=== PATIENT | female | born 1970 | race African-American/Black ===

== ENCOUNTER 2018-01-30 11:36 | Emergency (ER) | payer BC, SELFPAY ==
[~2018-01-30] VITALS: Ht 167.6 cm; Wt 72.6 kg
[2018-01-30 11:33] VITALS: BP 134/88
[~2018-01-30 11:36] MED LIST: AZITHROMYCIN250 MG ORAL; IBUPROFEN600 MG ORAL; LISINOPRIL-HCT1 EACH ORAL
[2018-01-30] MEDS ORDERED: Sodium Chloride 500ML 500 ML IV ONE (12:07)
--- NOTE | 2018-01-30 12:13 | Emergency Room Report ---
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 was on Keppra however few months ago stopped taking the medicine secondary to side effects Patient was at lunch with friends when she began having initially with sounds to be a partial seizure where she started to turn her head to the right side became stiff And then turn into a tonic-clonic seizure activity At this time patient is awake and alert denies any chest pain denies any back or flank pain She is on 2 antihypertensive medications Otherwise denies any focal weakness Allergies: Coded Allergies: No Known Allergies (Unverified , 05/28/14) Patient History Past Medical History: see triage record Pertinent Family History: none Now: No Reviewed Nursing Documentation: PMH: Agreed; PSxH: Agreed Nursing Documentation-PMH Past Medical History: No History, Except For Hx Hypertension: Yes Review of Systems All Other Systems: negative except mentioned in HPI Physical Exam Vital Signs Date Time Temp Pulse Resp B/P (MAP) Pulse Ox O2 Delivery O2 Flow Rate FiO2 01/30/18 11:18 98.4 120 16 160/102 99 Room Air 98.4 Sp02 EP Interpretation: reviewed, normal General Appearance: well appearing, no apparent distress Head: normocephalic, other - Evidence of surgical scar involving the left temporal area Eyes: bilateral eye PERRL, bilateral eye EOMI ENT: hearing grossly normal, normal pharynx, TMs + canals normal, uvula midline Neck: full range of motion, supple, no meningismus, no bony tend Respiratory: lungs clear, normal breath sounds, no rhonchi, no respiratory distress, no retraction, no accessory muscle use Cardiovascular #1: normal peripheral pulses, regular rate, rhythm, no edema, no gallop, no JVD, no murmur Gastrointestinal: normal bowel sounds, non tender, soft, no mass, no organomegaly, non-distended, no guarding, no hernia, no pulsatile mass, no rebound Genitourinary: no CVA tenderness Musculoskeletal: normal inspection Neurologic: oriented x3, responsive, 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 operator III-XII nml as tested, motor strength/ tone normal, sensory intact Psychiatric: mood/affect normal Skin: normal color, no rash, warm/dry, palpation normal Lymphatic: normal inspection, no adenopathy Medical Decision Making Diagnostic Impression: Primary Impression: Seizure ER Course Multiple differentials including but not limited to neurological, neurosurgical , infectious pathology entertained Patient CT head at this time is negative Baseline blood work are appropriate Initial dose of Keppra is provided I did make contact with the patient's neurosurgeon at [facility] He does recall the patient while He recommended the patient start on a lower dose of Keppra And will make follow-up for this upcoming week patient reports significant reaction to Keppra and requesting other medication and was provided with Dilantin until she is able to see her specialist Labs Test 01/30/18 12:18 White Blood Count 9.5 K/UL (4.8-10.8) Red Blood Count 4.86 M/UL (4.20-5.40) Hemoglobin 13.2 G/DL (12.0-16.0) Hematocrit 40.8 % (37.0-47.0) Mean Corpuscular Volume 84 FL (80-99) Mean Corpuscular Hemoglobin 27.1 PG (27.0-31.0) Mean Corpuscular Hemoglobin Concent 32.2 G/DL (32.0-36.0) Red Cell Distribution Width 14.4 % (11.6-14.8) Platelet Count 283 K/UL (150-450) Mean Platelet Volume 7.3 FL (6.5-10.1) Neutrophils (%) (Auto) 75.7 % (45.0-75.0) Lymphocytes (%) (Auto) 16.4 % (20.0-45.0) Monocytes (%) (Auto) 6.6 % (1.0-10.0) Eosinophils (%) (Auto) 0.7 % (0.0-3.0) Basophils (%) (Auto) 0.7 % (0.0-2.0) Sodium Level 138 MMOL/L (136-145) Potassium Level 3.9 MMOL/L (3.5-5.1) Chloride Level 102 MMOL/L (98-107) Carbon Dioxide Level 21 MMOL/L (21-32) Anion Gap 15 mmol/L (5-15) Blood Urea Nitrogen 9 mg/dL (7-18) Creatinine 0.9 MG/DL (0.55-1.30) Estimat Glomerular Filtration Rate > 60 mL/min (>60) Glucose Level 126 MG/DL (74-106) Calcium Level 8.4 MG/DL (8.5-10.1) Total Bilirubin 0.4 MG/DL (0.2-1.0) Aspartate Amino Transf (AST/SGOT) 15 U/L (15-37) Alanine Aminotransferase (ALT/SGPT) 12 U/L (12-78) Alkaline Phosphatase 69 U/L (46-116) Total Creatine Kinase 9 U/L (26-308) Creatine Kinase MB 0.5 NG/ML (0.0-3.6) Creatine Kinase MB Relative Index 5.5 Total Protein 7.4 G/DL (6.4-8.2) Albumin 3.5 G/DL (3.4-5.0) Globulin 3.9 g/dL Albumin/Globulin Ratio 0.9 (1.0-2.7) EKG Diagnostic Results Rate: normal Rhythm: NSR ST Segments: no acute changes Rhythm Strip Diag. Results EP Interpretation: yes Rate: 66 Rhythm: NSR, no PVC's, no ectopy Chest X-Ray Diagnostic Results Chest X-Ray Diagnostic Results : Chest X-Ray Ordered: Yes # of Views/Limited/Complete: 1 View Indication: Chest Pain EP Interpretation: Yes Interpretation: no consolidation, no effusion, no pneumothorax Impression: No acute disease Electronically Signed by: Nabil Leung DO CT/MRI/US Diagnostic Results CT/MRI/US Diagnostic Results : Impression CT head no acute disease Last Vital Signs Date Time Temp Pulse Resp B/P (MAP) Pulse Ox O2 Delivery O2 Flow Rate FiO2 01/30/18 11:33 98.4 107 16 134/88 99 Room Air 98.4 Status: improved Disposition: HOME, SELF-CARE Condition: Improved Scripts Phenytoin Sodium Extended* (DILANTIN*) 100 Mg Capsule 100 MG ORAL BID, #10 CAP 0 Refills Prov: Nabil Leung DO 01/30/18 Referrals: NOT CHOSEN IPA/MD,REFERRING (PCP) Additional Instructions: Patient is provided with the discharge instructions notified to follow up with your neurosurgeon in the next 2-3 days otherwise return to the er with any worsening symptoms. Please note that this report is being documented using DRAGON technology. This can lead to erroneous entry secondary to incorrect interpretation by the dictating instrument. Nabil Leung DO Jan 30, 2018 12:13
[2018-01-30] MEDS ORDERED: levETIRAcetam 500mg/NS100ml 100 ML IVPB ONE (12:15)
[2018-01-30 12:35] LABS: BASOPHILS % (AUTO) 0.7 % (0.0-2.0); EOSINOPHILS % (AUTO) 0.7 % (0.0-3.0); HEMATOCRIT 40.8 % (37.0-47.0); HEMOGLOBIN 13.2 G/DL (12.0-16.0); LYMPHOCYTES % (AUTO) 16.4 % (20.0-45.0); MEAN CORPUSCULAR VOLUME 84 FL (80-99); MONOCYTES % (AUTO) 6.6 % (1.0-10.0); NEUTROPHILS % (AUTO) 75.7 % (45.0-75.0); PLATELET COUNT 283 K/UL (150-450); RED BLOOD COUNT 4.86 M/UL (4.20-5.40); RED CELL DISTRIBUTION WIDTH 14.4 % (11.6-14.8); WHITE BLOOD COUNT 9.5 K/UL (4.8-10.8)
[2018-01-30 12:41] LABS: ANION GAP 15 mmol/L (5-15); BLOOD UREA NITROGEN 9 mg/dL (7-18); CALCIUM 8.4 MG/DL (8.5-10.1); CARBON DIOXIDE 21 MMOL/L (21-32); CHLORIDE 102 MMOL/L (98-107); CREATININE 0.9 MG/DL (0.55-1.30); POTASSIUM 3.9 MMOL/L (3.5-5.1); SODIUM 138 MMOL/L (136-145)
--- NOTE | 2018-01-30 12:41 | Diagnostic Imaging Report ---
EXAM: XR Chest, 1 View CLINICAL HISTORY: CP TECHNIQUE: Frontal view of the chest. COMPARISON: No relevant prior studies available. FINDINGS: Lungs: No consolidation. Pleural space: Unremarkable. No pneumothorax. Heart: Borderline cardiomegaly. Mediastinum: Unremarkable. Bones/joints: No acute fracture. Vasculature: Prominent aortic knob. IMPRESSION: No acute findings.
--- NOTE | 2018-01-30 12:43 | Diagnostic Imaging Report ---
EXAM: CT Head Without Intravenous Contrast CLINICAL HISTORY: SZ TECHNIQUE: Axial computed tomography images of the head/brain without intravenous contrast. CTDI is 0.15 + 70.38 mGy and DLP is 1315 mGy-cm. One or more of the following dose reduction techniques were used: automated exposure control, adjustment of the mA and/or kV according to patient size, use of iterative reconstruction technique. COMPARISON: No relevant prior studies available. FINDINGS: Brain: No intracranial hemorrhage. Gliosis and encephalomalacia in the left temporal lobe. Ventricles: No ventriculomegaly. Bones/joints: Surgical changes in left calvarium. Soft tissues: Unremarkable. Sinuses: No acute sinusitis. Mastoid air cells: No mastoid effusion. IMPRESSION: No acute findings.
[2018-01-30 12:55] LABS: ALANINE AMINOTRANSFERASE 12 U/L (12-78); ALBUMIN 3.5 G/DL (3.4-5.0); ALBUMIN/GLOBULIN RATIO 0.9 (1.0-2.7); ALKALINE PHOSPHATASE 69 U/L (46-116); ASPARTATE AMINO TRANSFERASE 15 U/L (15-37); BILIRUBIN,TOTAL 0.4 MG/DL (0.2-1.0); CKMB 0.5 NG/ML (0.0-3.6); CREATINE KINASE 9 U/L (26-308)
[2018-01-30] MEDS ORDERED: DILANTIN100 MG ORAL (14:05)
[2018-01-30 14:22] VITALS: BP 124/76
[2018-01-30 14:23] VITALS: BP 124/76
--- NOTE | 2018-01-31 13:53 | Cardiology Report ---
APPROVED REPORT EKG Measurement Heart [id number] Normal sinus rhythm Low voltage QRS Borderline ECG
== END 2018-01-30 14:26 | disposition home or self-care (01) ==
LOC: EDBD 11:36 → EMR 12:01
DX: G40.909 Epilepsy, unspecified, not intractable, without status epilepticus (principal); I10 Essential (primary) hypertension
CPT/HCPCS: 36415; 70450; 71045; 80053; 82550; 82553; 85025; 93005; 96374; 99284; J1953; J7040

== ENCOUNTER 2018-04-18 11:24 | Inpatient (IN) | payer BC ==
[~2018-04-18] VITALS: Ht 162.6 cm; Wt 70.3 kg
[~2018-04-18 11:24] MED LIST changes: +DILANTIN100 MG ORAL
[2018-04-18] MEDS ORDERED: LORazepam Inj 2mg/ml 1ml ONE (11:26)
[2018-04-18] MEDS ORDERED: LORazepam Inj 2mg/ml 1ml IV ONE (11:45)
[2018-04-18 11:50] LABS: BASOPHILS % (AUTO) 0.7 % (0.0-2.0); EOSINOPHILS % (AUTO) 1.3 % (0.0-3.0); HEMATOCRIT 46.5 % (37.0-47.0); HEMOGLOBIN 14.3 G/DL (12.0-16.0); LYMPHOCYTES % (AUTO) 38.5 % (20.0-45.0); MEAN CORPUSCULAR VOLUME 90 FL (80-99); MONOCYTES % (AUTO) 11.9 % (1.0-10.0); NEUTROPHILS % (AUTO) 47.5 % (45.0-75.0); PLATELET COUNT 347 K/UL (150-450); RED BLOOD COUNT 5.15 M/UL (4.20-5.40); RED CELL DISTRIBUTION WIDTH 13.5 % (11.6-14.8); WHITE BLOOD COUNT 11.5 K/UL (4.8-10.8)
[2018-04-18 12:00] VITALS: BP 125/84
[2018-04-18 12:02] LABS: ANION GAP 27 mmol/L (5-15); BLOOD UREA NITROGEN 6 mg/dL (7-18); CALCIUM 9.5 MG/DL (8.5-10.1); CARBON DIOXIDE 12 MMOL/L (21-32); CHLORIDE 104 MMOL/L (98-107); CREATININE 1.1 MG/DL (0.55-1.30); POTASSIUM 3.8 MMOL/L (3.5-5.1); SODIUM 143 MMOL/L (136-145)
[2018-04-18] MEDS ORDERED: Midazolam 2mg/2ml Inj IVP ONE (12:15)
[2018-04-18 12:17] LABS: ALANINE AMINOTRANSFERASE 20 U/L (12-78); ALBUMIN 4.3 G/DL (3.4-5.0); ALBUMIN/GLOBULIN RATIO 0.8 (1.0-2.7); ALKALINE PHOSPHATASE 106 U/L (46-116); ASPARTATE AMINO TRANSFERASE 21 U/L (15-37); BILIRUBIN,TOTAL 0.2 MG/DL (0.2-1.0); CKMB 0.5 NG/ML (0.0-3.6); CREATINE KINASE 140 U/L (26-308)
--- NOTE | 2018-04-18 12:20 | Emergency Room Report ---
History of Present Illness General Chief Complaint: Seizure Source: Family Member Present Illness HPI Patient presents by with reports of seizure activity Patient has had previous tumor removal at [facility] Patient was here in January with similar breakthrough seizure At that time contact was made with the patient's specialist and after further appropriate orientation patient had been dispositioned With today's visit the reports that The patient's sister had been on the phone with the patient, there was some question of change in mental status, the had been going outside to drive to where he thought the patient was when the patient arrived into the driveway in her car. At that time he describes a tonic-clonic seizure he put the car into park and the patient was helped into the passenger side at which point he drove to the emergency room reports that the patient taken her Dilantin in the morning However the breakthrough seizures did occur Patient presents post ictal and initial history is very limited There was no reports of recent fevers no reports of any vomiting or diarrhea Family also denies any seizures since her last visit here in January Allergies: Coded Allergies: No Known Allergies (Unverified , 05/28/14) Patient History Limited by: medical condition Past Medical History: see triage record Pertinent Family History: unable to obtain Last Menstrual Period: 1 wk ago Now: No Reviewed Nursing Documentation: PMH: Agreed; PSxH: Agreed Nursing Documentation-PMH Hx Hypertension: Yes Hx Seizures: Yes Review of Systems All Other Systems: limited - Other than the ones mentioned in the history of present illness all others are reviewed however they do stay limited due to the patient's mental status Physical Exam Vital Signs Date Time Temp Pulse Resp B/P (MAP) Pulse Ox O2 Delivery O2 Flow Rate FiO2 04/18/18 11:35 97.0 127 25 172/77 96 Non-Rebreather 10.0 Sp02 EP Interpretation: reviewed, normal General Appearance: mild distress - Initially actively seizing Head: atraumatic - Previous history of surgery Eyes: bilateral eye PERRL, bilateral eye EOMI ENT: normal pharynx Neck: full range of motion, supple Respiratory: lungs clear, normal breath sounds, no retraction Cardiovascular #1: no edema, tachycardia Gastrointestinal: non tender, soft, no mass Musculoskeletal: normal inspection - Initially the patient was actively seizing tonic-clonic, after postictal state the patient is following minimal commands Neurologic: responsive - Again initially active seizure, patient is becoming more oriented Skin: normal color, no rash Lymphatic: no adenopathy Medical Decision Making Diagnostic Impression: Primary Impression: Epileptic seizure, generalized ER Course Patient presents with a breakthrough seizure Given the prolonged postictal state and the prolonged activity itself patient has CT imaging obtained Dilantin level is low at 2.4 This is being replaced in the IV Patient required a second dose of Versed as she became somewhat agitated coming out of her postictal state Contact was made with [facility] neurosurgery No other acute intervention is recommended Patient is replaced with her Dilantin as her levels are significantly low given the multiple seizure activity in the prolonged postictal state patient is admitted for further stabilization Labs Test 04/18/18 11:30 04/19/18 07:20 White Blood Count 11.5 K/UL (4.8-10.8) 7.4 K/UL (4.8-10.8) Red Blood Count 5.15 M/UL (4.20-5.40) 4.84 M/UL (4.20-5.40) Hemoglobin 14.3 G/DL (12.0-16.0) 13.5 G/DL (12.0-16.0) Hematocrit 46.5 % (37.0-47.0) 40.5 % (37.0-47.0) Mean Corpuscular Volume 90 FL (80-99) 84 FL (80-99) Mean Corpuscular Hemoglobin 27.8 PG (27.0-31.0) 28.0 PG (27.0-31.0) Mean Corpuscular Hemoglobin Concent 30.8 G/DL (32.0-36.0) 33.5 G/DL (32.0-36.0) Red Cell Distribution Width 13.5 % (11.6-14.8) 12.9 % (11.6-14.8) Platelet Count 347 K/UL (150-450) 333 K/UL (150-450) Mean Platelet Volume 6.8 FL (6.5-10.1) 6.5 FL (6.5-10.1) Neutrophils (%) (Auto) 47.5 % (45.0-75.0) 70.2 % (45.0-75.0) Lymphocytes (%) (Auto) 38.5 % (20.0-45.0) 18.5 % (20.0-45.0) Monocytes (%) (Auto) 11.9 % (1.0-10.0) 9.5 % (1.0-10.0) Eosinophils (%) (Auto) 1.3 % (0.0-3.0) 1.1 % (0.0-3.0) Basophils (%) (Auto) 0.7 % (0.0-2.0) 0.7 % (0.0-2.0) Sodium Level 143 MMOL/L (136-145) 138 MMOL/L (136-145) Potassium Level 3.8 MMOL/L (3.5-5.1) 3.2 MMOL/L (3.5-5.1) Chloride Level 104 MMOL/L (98-107) 104 MMOL/L (98-107) Carbon Dioxide Level 12 MMOL/L (21-32) 27 MMOL/L (21-32) Anion Gap 27 mmol/L (5-15) 7 mmol/L (5-15) Blood Urea Nitrogen 6 mg/dL (7-18) 5 mg/dL (7-18) Creatinine 1.1 MG/DL (0.55-1.30) 0.9 MG/DL (0.55-1.30) Estimat Glomerular Filtration Rate > 60 mL/min (>60) > 60 mL/min (>60) Glucose Level 203 MG/DL (74-106) 111 MG/DL (74-106) Calcium Level 9.5 MG/DL (8.5-10.1) 8.7 MG/DL (8.5-10.1) Total Bilirubin 0.2 MG/DL (0.2-1.0) 0.2 MG/DL (0.2-1.0) Aspartate Amino Transf (AST/SGOT) 21 U/L (15-37) 19 U/L (15-37) Alanine Aminotransferase (ALT/SGPT) 20 U/L (12-78) 21 U/L (12-78) Alkaline Phosphatase 106 U/L (46-116) 95 U/L (46-116) Total Creatine Kinase 140 U/L (26-308) Creatine Kinase MB 0.5 NG/ML (0.0-3.6) Creatine Kinase MB Relative Index 0.3 Total Protein 9.4 G/DL (6.4-8.2) 8.3 G/DL (6.4-8.2) Albumin 4.3 G/DL (3.4-5.0) 3.6 G/DL (3.4-5.0) Globulin 5.1 g/dL 4.7 g/dL Albumin/Globulin Ratio 0.8 (1.0-2.7) 0.8 (1.0-2.7) Phenytoin (Dilantin) Level 2.4 ug/mL (10-20) Rhythm Strip Diag. Results EP Interpretation: yes Rate: 77 Rhythm: NSR, no PVC's, no ectopy CT/MRI/US Diagnostic Results CT/MRI/US Diagnostic Results : Impression CT head: no acute disease Last Vital Signs Date Time Temp Pulse Resp B/P (MAP) Pulse Ox O2 Delivery O2 Flow Rate FiO2 04/18/18 12:00 97.5 118 22 125/84 100 Non-Rebreather 10.0 Status: improved Disposition: ADMITTED INPATIENT Condition: Serious Scripts Phenytoin Sodium Extended* (DILANTIN*) 100 Mg Capsule 100 MG ORAL BID for 30 Days, CAP Prov: Ammon Ochoa MD 04/19/18 Nabil Leung DO Apr 18, 2018 12:20
[2018-04-18 12:45] VITALS: BP 128/88
--- NOTE | 2018-04-18 12:49 | Diagnostic Imaging Report ---
EXAM: CT Head Without Intravenous Contrast CLINICAL HISTORY: SZ TECHNIQUE: Axial computed tomography images of the head/brain without intravenous contrast. One or more of the following dose reduction techniques were used: automated exposure control, adjustment of the mA and/or kV according to patient size, use of iterative reconstruction technique. COMPARISON: CT head 01/30/18 FINDINGS: Brain: Left temporal encephalomalacia. No intracranial hemorrhage. No edema. No mass effect or midline shift. No intra-or extra-axial fluid collections or masses. Ventricles: Unremarkable. No ventriculomegaly. Bones/joints: Left frontal and parietotemporal craniotomy. No acute fracture. Soft tissues: Unremarkable. Sinuses: Unremarkable as visualized. No acute sinusitis. Mastoid air cells: Unremarkable as visualized. No mastoid effusion. IMPRESSION: 1. No acute intracranial abnormality. 2. Left frontal and parietotemporal craniotomy. Left temporal encephalomalacia.
[2018-04-18] MEDS ORDERED: Phenytoin 1,000 MG in NS 275 ML IVPB ONE (13:00)
[2018-04-18] MEDS ORDERED: Mylanta II UD 30ml ORAL PRN (14:30)
[2018-04-18] MEDS ORDERED: Morphine Sulfate 2mg/ml Inj IVP PRN (14:30)
[2018-04-18] MEDS ORDERED: Miralax 17gm pkt ORAL PRN (14:30)
[2018-04-18] MEDS ORDERED: LORazepam Inj 2mg/ml 1ml IV PRN (14:30)
[2018-04-18] MEDS ORDERED: Zolpidem 5mg tab ORAL PRN (14:30)
[2018-04-18 14:50] VITALS: BP 126/86
[2018-04-18] MEDS: Phenytoin 100mg cap ORAL SCH (17:53)
[2018-04-18 20:00] VITALS: BP 128/82
[2018-04-18] MEDS: Heparin 5000 units/ml inj SUBQ SCH (20:58)
[2018-04-19] VITALS: BP 114/72
[2018-04-19 04:00] VITALS: BP 105/73
[2018-04-19 07:32] LABS: BASOPHILS % (AUTO) 0.7 % (0.0-2.0); EOSINOPHILS % (AUTO) 1.1 % (0.0-3.0); HEMATOCRIT 40.5 % (37.0-47.0); HEMOGLOBIN 13.5 G/DL (12.0-16.0); LYMPHOCYTES % (AUTO) 18.5 % (20.0-45.0); MEAN CORPUSCULAR VOLUME 84 FL (80-99); MONOCYTES % (AUTO) 9.5 % (1.0-10.0); NEUTROPHILS % (AUTO) 70.2 % (45.0-75.0); PLATELET COUNT 333 K/UL (150-450); RED BLOOD COUNT 4.84 M/UL (4.20-5.40); RED CELL DISTRIBUTION WIDTH 12.9 % (11.6-14.8); WHITE BLOOD COUNT 7.4 K/UL (4.8-10.8)
[2018-04-19 07:47] LABS: ALANINE AMINOTRANSFERASE 21 U/L (12-78); ALBUMIN 3.6 G/DL (3.4-5.0); ALBUMIN/GLOBULIN RATIO 0.8 (1.0-2.7); ALKALINE PHOSPHATASE 95 U/L (46-116); ANION GAP 7 mmol/L (5-15); ASPARTATE AMINO TRANSFERASE 19 U/L (15-37); BILIRUBIN,TOTAL 0.2 MG/DL (0.2-1.0); BLOOD UREA NITROGEN 5 mg/dL (7-18); CALCIUM 8.7 MG/DL (8.5-10.1); CARBON DIOXIDE 27 MMOL/L (21-32); CHLORIDE 104 MMOL/L (98-107); CREATININE 0.9 MG/DL (0.55-1.30); POTASSIUM 3.2 MMOL/L (3.5-5.1); SODIUM 138 MMOL/L (136-145)
[2018-04-19 08:00] VITALS: BP 117/93
[2018-04-19] MEDS: Phenytoin 100mg cap ORAL SCH (08:18)
[2018-04-19] MEDS: Heparin 5000 units/ml inj SUBQ SCH (08:23)
[2018-04-19 12:00] VITALS: BP 110/73
--- NOTE | 2018-04-19 13:03 | Consultation ---
History of Present Illness General Chief Complaint: Seizure Present Illness HPI 47 year old female with hx of seizure disorder, on Dilantin, presented to ER with CC of seizures. Pt was witnessed to have seizures. she apparently decided to decrease the dose of Dilantin dosing. currently she takes only on tab of 100 mg QD. Allergies: Coded Allergies: No Known Allergies (Unverified , 05/28/14) Medication History Scheduled Azithromycin* (Zithromax*), 250 MG ORAL DAILY Lisinopril/Hydrochlorothiazide 10-12.5 Mg Tab (Lisinopril-Hctz 10-12.5 Mg Tab), 1 TAB ORAL DAILY Phenytoin Sodium Extended* (Dilantin*), 100 MG ORAL BID Scheduled PRN Ibuprofen* (Motrin*), 600 MG ORAL Q8H PRN for For Pain Patient History Healthcare decision maker Resuscitation status Full Code Advanced Directive on File Past Medical/Surgical History Past Medical/Surgical History: (1) Seizure Review of Systems All Other Systems: negative except mentioned in HPI Physical Exam General Appearance: WD/WN Lines, tubes and drains: peripheral HEENT: normocephalic Neck: non-tender Respiratory/Chest: chest wall non-tender, lungs clear Cardiovascular/Chest: normal peripheral pulses, normal rate, regular rhythm Abdomen: normal bowel sounds, non tender Genitourinary/Rectal: normal genital exam Extremities: non-tender Skin Exam: normal pigmentation Last 24 Hour Vital Signs Date Time Temp Pulse Resp B/P (MAP) Pulse Ox O2 Delivery O2 Flow Rate FiO2 04/19/18 09:00 Room Air 04/19/18 08:00 96.3 88 18 117/93 (101) 95 04/19/18 08:00 92 04/19/18 04:00 98.0 80 20 105/73 (84) 100 04/19/18 04:00 81 04/19/18 00:00 83 04/19/18 00:00 98.2 79 20 114/72 (86) 99 04/18/18 21:00 Nasal Cannula 2.0 04/18/18 20:00 90 04/18/18 20:00 98.0 96 20 128/82 (97) 100 04/18/18 18:28 97.9 04/18/18 16:43 97.9 88 22 126/86 100 Nasal Cannula 3.0 11/11/18 16:00 91 04/18/18 15:05 Room Air 04/18/18 14:50 97.9 88 22 126/86 100 Nasal Cannula 3.0 Intake and Output 04/18/18 04/19/18 18:59 06:59 Intake Total 900 ml Balance 900 ml Other 900 ml # Voids 4 1 Laboratory Tests Test 04/19/18 07:20 White Blood Count 7.4 K/UL (4.8-10.8) Red Blood Count 4.84 M/UL (4.20-5.40) Hemoglobin 13.5 G/DL (12.0-16.0) Hematocrit 40.5 % (37.0-47.0) Mean Corpuscular Volume 84 FL (80-99) Mean Corpuscular Hemoglobin 28.0 PG (27.0-31.0) Mean Corpuscular Hemoglobin Concent 33.5 G/DL (32.0-36.0) Red Cell Distribution Width 12.9 % (11.6-14.8) Platelet Count 333 K/UL (150-450) Mean Platelet Volume 6.5 FL (6.5-10.1) Neutrophils (%) (Auto) 70.2 % (45.0-75.0) Lymphocytes (%) (Auto) 18.5 % (20.0-45.0) L Monocytes (%) (Auto) 9.5 % (1.0-10.0) Eosinophils (%) (Auto) 1.1 % (0.0-3.0) Basophils (%) (Auto) 0.7 % (0.0-2.0) Sodium Level 138 MMOL/L (136-145) Potassium Level 3.2 MMOL/L (3.5-5.1) L Chloride Level 104 MMOL/L (98-107) Carbon Dioxide Level 27 MMOL/L (21-32) Anion Gap 7 mmol/L (5-15) Blood Urea Nitrogen 5 mg/dL (7-18) L Creatinine 0.9 MG/DL (0.55-1.30) Estimat Glomerular Filtration Rate > 60 mL/min (>60) Glucose Level 111 MG/DL (74-106) H Calcium Level 8.7 MG/DL (8.5-10.1) Total Bilirubin 0.2 MG/DL (0.2-1.0) Aspartate Amino Transf (AST/SGOT) 19 U/L (15-37) Alanine Aminotransferase (ALT/SGPT) 21 U/L (12-78) Alkaline Phosphatase 95 U/L (46-116) Total Protein 8.3 G/DL (6.4-8.2) H Albumin 3.6 G/DL (3.4-5.0) Globulin 4.7 g/dL Albumin/Globulin Ratio 0.8 (1.0-2.7) L Height (Feet): 5 Height (Inches): 4.00 Weight (Pounds): 155 Medications Current Medications Medications (Trade) Dose Ordered Sig/Jairo Route PRN Reason Start Time Stop Time Status Last Admin Dose Admin Acetaminophen (Tylenol) 650 mg Q4H PRN ORAL fever 04/18/18 14:30 05/18/18 14:29 04/18/18 17:58 Al Hydroxide/Mg Hydroxide (Mylanta II) 30 ml Q6H PRN ORAL dyspepsia 04/18/18 14:30 05/18/18 14:29 Dextrose (Dextrose 50%) 25 ml Q30M PRN IV Hypoglycemia 04/18/18 14:30 05/18/18 14:29 Dextrose (Dextrose 50%) 50 ml Q30M PRN IV Hypoglycemia 04/18/18 15:15 05/18/18 15:14 Heparin Sodium (Porcine) (Heparin 5000 units/ml) 5,000 units EVERY 12 HOURS SUBQ 04/18/18 21:00 05/18/18 20:59 04/19/18 08:23 Lorazepam (Ativan 2mg/ml 1ml) 2 mg Q1H PRN IV seizures 04/18/18 14:30 04/25/18 14:29 Morphine Sulfate (Morphine Sulfate) 1 mg Q4H PRN IVP For Pain 04/18/18 14:30 04/25/18 14:29 Ondansetron HCl (Zofran) 4 mg Q6H PRN IVP Nausea & Vomiting 04/18/18 14:30 05/18/18 14:29 Phenytoin (Dilantin) 100 mg BID ORAL 04/18/18 18:00 05/18/18 17:59 04/19/18 08:18 Polyethylene Glycol (Miralax) 17 gm HSPRN PRN ORAL Constipation 04/18/18 14:30 05/18/18 14:29 Zolpidem Tartrate (Ambien) 5 mg HSPRN PRN ORAL Insomnia 04/18/18 14:30 04/25/18 14:29 Assessment/Plan Problem List: (1) Seizure ICD Codes: R56.9 - Unspecified convulsions SNOMED: [id number] Assessment/Plan pt received on Gm of Dilantin IV in ER. she is asymptomatic She was told to increase her dilantin dosing as prescribed by her neurologist. Ammon Ochoa MD Apr 19, 2018 13:03
[2018-04-19] MEDS ORDERED: DILANTIN100 MG ORAL (13:26)
--- NOTE | 2018-04-19 18:26 | Cardiology Report ---
APPROVED REPORT EKG Measurement Heart [id number] [id number] Sinus tachycardia Otherwise normal ECG
--- NOTE | 2018-04-19 20:01 | History and Physical Report ---
DATE OF ADMISSION: 04/18/2018 TIME SEEN: On 04/19/2018, at 1 p.m. CONSULTANTS: 1. Ammon Ochoa M.D. 2. Woody Abbasi M.D. CHIEF COMPLAINT: Seizure. BRIEF HISTORY: This is a 47-year-old female who lives at home with history of seizure, last time was about a year ago. Apparently, she stopped taking the proper dose about few months ago and came in with seizure x1. The patient was found to have seizure and low Dilantin level, and admitted to telemetry for further care. Currently, calm in bed, feeling better, wants to go home. REVIEW OF SYSTEMS: No chest pain. No shortness of breath. No nausea, vomiting, or diarrhea. PAST MEDICAL HISTORY: Includes brain tumor. PAST SURGICAL HISTORY: Brain tumor about 10 months ago. ALLERGIES: Denies. MEDICATIONS: Include heparin, phenytoin, zolpidem, lorazepam, Zofran, Tylenol, morphine. SOCIAL HISTORY: No smoking. No alcohol. No intravenous drug abuse. FAMILY HISTORY: Noncontributory. PHYSICAL EXAMINATION: GENERAL: Calm in bed, oriented x3, in no acute distress. VITAL SIGNS: Show temperature is 96, pulse 92, respiratory rate 18, blood pressure 172/93. CARDIOVASCULAR: No murmur. LUNGS: Distant and clear. ABDOMEN: Bowel sounds positive. Nontender. Nondistended. EXTREMITIES: No cyanosis or edema. NEUROLOGIC: Cranial nerves II through XII are grossly intact. Deep tendon reflexes 2+/4. Muscle strength 4/5. LABORATORY DATA: Laboratories at this time show CBC is normal. BMP shows potassium 3.2, glucose 111, otherwise normal. Toxicology, Dilantin level is 2.4. ASSESSMENT: Seizure, low Dilantin level, hypertension. PLAN: Blood pressure control. Seizure control. Dietary followup. The patient was bolused on Dilantin and wanted to go home. We will discharge if cleared by team. We will continue to follow this patient. Follow up with PCP DEVON. Héctor Artis D.O. DR: Brooklynn JOB#: [id number] CC:
--- NOTE | 2018-04-21 10:00 | Discharge Summary ---
Discharge Summary Discharge Summary _ DATE OF ADMISSION: 04/18/2018 DATE OF DISCHARGE: 04/19/2018 REASON FOR ADMISSION: 47 years old female with past medical history of brain tumor, status post removal ,generalized epileptic seizure, hypertension ,presented to emergency room after breakthrough seizure episode. Upon evaluation she was tachycardic , hypoxic , and required nonrebreathing mask. Blood pressure was elevated 172/77 . Laboratory workup revealed subtherapeutic Dilantin level 2.4 . patient received loading dose of Dilantin in emergency department and admitted to telemetry floor for further management with diagnosis of generalized epileptic seizure with seizure breakthrough episode. 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 Ochoa [facility] COURSE: Patient admitted to monitored floor. Patient was on gentle IV hydration. Patient was continued on Dilantin, after bolus dose given in ED. Seizure precautions were maintained. Ativan was on board as needed for breakthrough seizure. No further seizure activity. DVT prophylaxis provided. Potassium replaced. Blood pressure was closely monitored and remained stable . initially elevated blood pressure was likely due to postictal state after breakthrough seizure episode. Pulse oximetry was stable on room air. Patient was hemodynamically stable. Patient wanted to go home. Patient to follow-up with the primary care provider in 1 to 2 days Due to rapid and unexpected improvement in patient condition, patient was discharged in one day FINAL DIAGNOSES: Generalized seizure disorder Breakthrough seizure episode Subtherapeutic Dilantin level Hypertension DISCHARGE MEDICATIONS: See Medication Reconciliation list. DISCHARGE INSTRUCTIONS: Patient was discharged home . Follow up with primary care provider in one to two days. I have been assigned to dictate discharge summary for this account. I was not involved in the patient's management. Isatu Moreno NP Apr 21, 2018 10:00
== END 2018-04-19 14:53 | disposition home or self-care (01) | DRG 101 ==
LOC: EMR 13:08 → EDBD 13:08 → 2E 13:20 → EDBEDREQ 14:30
DX: G40.409 Other generalized epilepsy and epileptic syndromes, not intractable, without status epilepticus (principal); I10 Essential (primary) hypertension; Z91.128 Patient's intentional underdosing of medication regimen for other reason; Z98.890 Other specified postprocedural states
CPT/HCPCS: 36415; 70450; 80053; 80185; 82550; 82553; 82962; 85025; 93005; 96361; 96365; 96375; 99284; J1165; J2250; J8499

== ENCOUNTER 2019-01-01 18:07 | Emergency (ER) | payer BC ==
[~2019-01-01] VITALS: Ht 167.6 cm; Wt 77.1 kg
[2019-01-01 18:30] VITALS: BP 169/111
--- NOTE | 2019-01-01 18:30 | NUR ---
ED Nurse Note: pt was brought in by ambulance from home c/o post ictal. pt was seen by having seizure for 2 minutes, pt is alert oriented upon ed arrival. no apparent head trauma, pt denies any pain. will continue to monitor.
--- NOTE | 2019-01-01 18:45 | NUR ---
ED Nurse Note: with new order from ermd, iv stablished on pt left ac, blood drawn, pt able to give urine specimen and was sent to lab. ivf started. will continue to monitor.
[2019-01-01 19:00] VITALS: BP 145/91
[2019-01-01 19:19] LABS: BASOPHILS % (AUTO) 1.3 % (0.0-2.0); EOSINOPHILS % (AUTO) 0.8 % (0.0-3.0); HEMATOCRIT 38.3 % (37.0-47.0); HEMOGLOBIN 12.7 G/DL (12.0-16.0); LYMPHOCYTES % (AUTO) 19.2 % (20.0-45.0); MEAN CORPUSCULAR VOLUME 86 FL (80-99); MONOCYTES % (AUTO) 6.8 % (1.0-10.0); NEUTROPHILS % (AUTO) 71.9 % (45.0-75.0); PLATELET COUNT 283 K/UL (150-450); RED BLOOD COUNT 4.46 M/UL (4.20-5.40); RED CELL DISTRIBUTION WIDTH 11.6 % (11.6-14.8); WHITE BLOOD COUNT 8.6 K/UL (4.8-10.8)
[2019-01-01 19:22] LABS: ANION GAP 14 mmol/L (5-15); BLOOD UREA NITROGEN 9 mg/dL (7-18); CALCIUM 9.3 MG/DL (8.5-10.1); CARBON DIOXIDE 23 MMOL/L (21-32); CHLORIDE 102 MMOL/L (98-107); POTASSIUM 3.6 MMOL/L (3.5-5.1); SODIUM 139 MMOL/L (136-145)
--- NOTE | 2019-01-01 19:25 | NUR ---
ED Nurse Note: RECIEVED REPORT FROM SIDRA GREENE TO [facility]ME [facility], PT IS IN IMAGING FOR CT-SCAN, WILL RESUME CARE WHEN PT RETURNS TO DEPARTMENT.
[2019-01-01 19:26] LABS: ALANINE AMINOTRANSFERASE 12 U/L (12-78); ALBUMIN 4.1 G/DL (3.4-5.0); ALBUMIN/GLOBULIN RATIO 1.1 (1.0-2.7); ALKALINE PHOSPHATASE 62 U/L (46-116); ASPARTATE AMINO TRANSFERASE 16 U/L (15-37); BILIRUBIN,TOTAL 0.3 MG/DL (0.2-1.0)
[2019-01-01 19:28] LABS: APPEARANCE,URINE SLIGHTLY CLOUDY; BILIRUBIN, URINE NEGATIVE (NEGATIVE); COLOR,URINE PALE YELLOW; GLUCOSE, URINE (UA) NEGATIVE (NEGATIVE); KETONES,URINE 1+ (NEGATIVE); LEUKOCYTE ESTERASE ,URINE 1+ (NEGATIVE); NITRITE,URINE NEGATIVE (NEGATIVE); PH,URINE 6 (4.5-8.0); PROTEIN,URINE 2+ (NEGATIVE); UROBILINOGEN,URINE NORMAL MG/DL (0.0-1.0)
[2019-01-01] MEDS ORDERED: Phenytoin 1,000 MG in NS 275 ML IV ONE (19:30)
--- NOTE | 2019-01-01 19:34 | Diagnostic Imaging Report ---
EXAM: CT Head Without Intravenous Contrast CLINICAL HISTORY: SZ TECHNIQUE: Axial computed tomography images of the head/brain without intravenous contrast. CTDI is 70 mGy and DLP is 1323 mGy-cm. One or more of the following dose reduction techniques were used: automated exposure control, adjustment of the mA and/or kV according to patient size, use of iterative reconstruction technique. COMPARISON: 04/18/19 FINDINGS: Brain: Unchanged left inferior anterior temporal lobe encephalomalacia with left frontotemporal unchanged craniotomy findings. No hemorrhage. No significant white matter disease. Ventricles: Unremarkable. No ventriculomegaly. Bones/joints: See above. Soft tissues: Unremarkable. Sinuses: Unremarkable as visualized. No acute sinusitis. Mastoid air cells: Unremarkable as visualized. No mastoid effusion. IMPRESSION: 1. No acute intracranial abnormality. 2. Unchanged left inferior anterior temporal lobe encephalomalacia with left frontotemporal unchanged craniotomy findings.
[2019-01-01] MEDS ORDERED: Cephalexin 500mg cap ORAL ONE (19:45)
--- NOTE | 2019-01-01 20:00 | NUR ---
ED Nurse Note: PT RETURNED FROM IMAGING, ON GURNEY AWAKE, ALERT AND ORIENTED X 4, PT HAS SIDE RAILS PADDED FOR SZ PRECAUTIONS, NO SZ ACTIVITY NOTED, IV SITE PATENT, PT PLACED ON CARDIAC MONITORING, V/S STABLE, WILL RESUME CARE ORDERED AND CLOSELY MONITOR, PT DENIES PAIN, CP, SOB OR ANY DISTRESS.
[2019-01-01 20:20] VITALS: BP 149/84
[2019-01-01] MEDS ORDERED: CEPHALEXIN500 MG ORAL (21:32)
[2019-01-01] MEDS ORDERED: DILANTIN100 MG ORAL (21:32)
--- NOTE | 2019-01-01 21:45 | Emergency Room Report ---
History of Present Illness General Chief Complaint: Seizure Source: Medical Record Present Illness HPI 48-year-old female presents ED for evaluation. Brought in by EMS from home. History of seizures and had a witnessed seizure at home today. Fell from chair and hit her head. Seizure resolved prior to EMS arrival. No reported tongue trauma or incontinence. Patient is awake but postictal upon arrival. at bedside. History of seizures and takes Dilantin. Has not had any medication in 1 week. History of brain tumor with resection and radiation in 2018 at [facility]. Denies alcohol or drug use. Denies any headache. No other aggravating relieving factors. Denies any other associated symptoms Allergies: Coded Allergies: No Known Allergies (Unverified , 05/28/14) Patient History Past Medical History: HTN, seizures Past Surgical History: none Pertinent Family History: none Social History: Denies: smoking, alcohol use, drug use Last Menstrual Period: unknown Now: No Immunizations: UTD Reviewed Nursing Documentation: PMH: Agreed; PSxH: Agreed Nursing Documentation-PMH Past Medical History: No History, Except For Hx Cardiac Problems: No Hx Hypertension: Yes Hx Cancer: No Hx Gastrointestinal Problems: No Hx Seizures: Yes Review of Systems All Other Systems: negative except mentioned in HPI Physical Exam Vital Signs Date Time Temp Pulse Resp B/P (MAP) Pulse Ox O2 Delivery O2 Flow Rate FiO2 01/01/19 18:09 98.1 120 20 169/111 (130) 98 Room Air Sp02 EP Interpretation: reviewed, normal General Appearance: no apparent distress, alert, GCS 15, non-toxic, Postictal Head: normocephalic, atraumatic Eyes: bilateral eye normal inspection, bilateral eye PERRL ENT: hearing grossly normal, normal pharynx, no angioedema, normal voice Neck: full range of motion, supple/symm/no masses Respiratory: chest non-tender, lungs clear, normal breath sounds, speaking full sentences Cardiovascular #1: regular rate, rhythm, no edema Cardiovascular #2: 2+ carotid (R), 2+ carotid (L), 2+ radial (R), 2+ radial (L) , 2+ dorsalis pedis (R), 2+ dorsalis pedis (L) Gastrointestinal: normal bowel sounds, non tender, soft, non-distended, no guarding, no rebound Rectal: deferred Genitourinary: normal inspection, no CVA tenderness Musculoskeletal: back normal, gait/station normal, normal range of motion, non- tender Neurologic: alert, oriented x3, responsive, motor strength/tone normal, sensory intact, speech normal Psychiatric: judgement/insight normal, memory normal, mood/affect normal, no suicidal/homicidal ideation Reflexes: 3+ bicep (R), 3+ bicep (L), 3+ tricep (R), 3+ tricep (L), 3+ knee (R) , 3+ knee (L) Lymphatic: no adenopathy Medical Decision Making Diagnostic Impression: Primary Impression: Seizure Additional Impressions: Subtherapeutic serum dilantin level UTI (urinary tract infection) Qualified Codes: N39.0 - Urinary tract infection, site not specified ER Course Hospital Course 48-year-old F presents to ED status post seizure. h/o seizures Differential diagnosis includes- breakthrough seizure, alcohol abuse, noncompliance with medication Clinical course Patient placed on stretcher. Initial history and physical I ordered labs, IV fluids, CT brain Labs-electrolytes okay, no leukocytosis, hemoglobin/hematocrit stable. Utox + THC, dilantin level subtherapeutic, UA + bacteria CT Brain encephalomalacia noted. no acute process Patient allowed to rest is now awake alert oriented x3. Findings with patient and family. Patient states that she did not have her medication for the last week. Will provide her with refill of her medication be given loading dose of Dilantin. Keflex here. Safe for discharge close outpatient follow-up. States she has a PMD Diagnosis - seizure, UTI, subtherapeutic dilantin level stable and discharged to home with Rx Dilantin, Keflex. Followup with PMD. Return to ED if symptoms recur or worsen Labs Test 01/01/19 18:56 White Blood Count 8.6 K/UL (4.8-10.8) Red Blood Count 4.46 M/UL (4.20-5.40) Hemoglobin 12.7 G/DL (12.0-16.0) Hematocrit 38.3 % (37.0-47.0) Mean Corpuscular Volume 86 FL (80-99) Mean Corpuscular Hemoglobin 28.5 PG (27.0-31.0) Mean Corpuscular Hemoglobin Concent 33.2 G/DL (32.0-36.0) Red Cell Distribution Width 11.6 % (11.6-14.8) Platelet Count 283 K/UL (150-450) Mean Platelet Volume 6.1 FL (6.5-10.1) Neutrophils (%) (Auto) 71.9 % (45.0-75.0) Lymphocytes (%) (Auto) 19.2 % (20.0-45.0) Monocytes (%) (Auto) 6.8 % (1.0-10.0) Eosinophils (%) (Auto) 0.8 % (0.0-3.0) Basophils (%) (Auto) 1.3 % (0.0-2.0) Urine Color Pale yellow Urine Appearance Slightly cloudy Urine pH 6 (4.5-8.0) Urine Specific [place] 1.020 (1.005-1.035) Urine Protein 2+ (NEGATIVE) Urine Glucose (UA) Negative (NEGATIVE) Urine Ketones 1+ (NEGATIVE) Urine Blood Negative (NEGATIVE) Urine Nitrite Negative (NEGATIVE) Urine Bilirubin Negative (NEGATIVE) Urine Urobilinogen Normal MG/DL (0.0-1.0) Urine Leukocyte Esterase 1+ (NEGATIVE) Urine RBC 0-2 /HPF (0 - 2) Urine WBC 10-15 /HPF (0 - 2) Urine Squamous Epithelial Cells Moderate /LPF (NONE/OCC) Urine Bacteria Many /HPF (NONE) Sodium Level 139 MMOL/L (136-145) Potassium Level 3.6 MMOL/L (3.5-5.1) Chloride Level 102 MMOL/L (98-107) Carbon Dioxide Level 23 MMOL/L (21-32) Anion Gap 14 mmol/L (5-15) Blood Urea Nitrogen 9 mg/dL (7-18) Creatinine 1.0 MG/DL (0.55-1.30) Estimat Glomerular Filtration Rate > 60 mL/min (>60) Glucose Level 98 MG/DL (74-106) Calcium Level 9.3 MG/DL (8.5-10.1) Total Bilirubin 0.3 MG/DL (0.2-1.0) Aspartate Amino Transf (AST/SGOT) 16 U/L (15-37) Alanine Aminotransferase (ALT/SGPT) 12 U/L (12-78) Alkaline Phosphatase 62 U/L (46-116) Total Protein 7.7 G/DL (6.4-8.2) Albumin 4.1 G/DL (3.4-5.0) Globulin 3.6 g/dL Albumin/Globulin Ratio 1.1 (1.0-2.7) Salicylates Level 1.5 ug/mL (2.8-20) Urine Opiates Screen Negative (NEGATIVE) Acetaminophen Level < 2 MCG/ML (10-30) Urine Barbiturates Screen Negative (NEGATIVE) Phenytoin (Dilantin) Level < 0.5 ug/mL (10-20) Phencyclidine (PCP) Screen Negative (NEGATIVE) Urine Amphetamines Screen Negative (NEGATIVE) Urine Benzodiazepines Screen Negative (NEGATIVE) Urine Cocaine Screen Negative (NEGATIVE) Urine Marijuana (THC) Screen Positive (NEGATIVE) Serum Alcohol < 3 mg/dL CT/MRI/US Diagnostic Results CT/MRI/US Diagnostic Results : Imaging Test Ordered: CT Head Impression no acute process. Last Vital Signs Date Time Temp Pulse Resp B/P (MAP) Pulse Ox O2 Delivery O2 Flow Rate FiO2 01/01/19 19:00 87 21 145/91 99 Room Air 01/01/19 18:30 98.1 Status: improved Disposition: HOME, SELF-CARE Condition: Stable Scripts Phenytoin Sodium Extended* (DILANTIN*) 100 Mg Capsule 100 MG ORAL THREE TIMES A DAY, #90 CAP 0 Refills Prov: Jaun Loredo MD 01/01/19 Cephalexin* (KEFLEX*) 500 Mg Capsule 500 MG ORAL EVERY 6 HOURS for 7 Days, CAP Prov: Jaun Loredo MD 01/01/19 Patient Instructions: Seizure, Adult Jaun Loredo MD Jan 01, 2019 21:45
[2019-01-01 22:30] VITALS: BP 139/78
[2019-01-01 22:45] VITALS: BP 139/78
--- NOTE | 2019-01-01 22:45 | NUR ---
ED Nurse Note: PT COMPLETED IV DILANTIN, NO SZ ACTIVITY NOTED, IV SITE PATENT, PT IS NOW BEING D/C TO HOME, IS PRESENT TO DRIVE PT, PT IS AWAKE, ALERT AND ORIENTED X 4, DENEIS PAIN, NO SOB OR LABORED BREATHING NOTED, IV REMOVED WITHOUT COMPLICATIONS, PT ANS SPOUSE GIVEN F/U INFO, AFTER CARE INSTRUCTIONS AND RE-VERBALIZES PROPER MEDICATION ADMINISTRATION, NAD NOTED DURING D/C TO HOME.
== END 2019-01-01 23:00 | disposition home or self-care (01) ==
LOC: EDBD 18:07 → EMR 18:51
DX: G40.909 Epilepsy, unspecified, not intractable, without status epilepticus (principal); N39.0 Urinary tract infection, site not specified; R89.2 Abnormal level of other drugs, medicaments and biological substances in specimens from other organs, systems and tissues; I10 Essential (primary) hypertension
CPT/HCPCS: 36415; 70450; 80053; 80185; 80307; 81003; 85025; 87086; 96361; 96365; 99284; G0480; J1165; J7050; 80329

== ENCOUNTER 2019-08-21 12:25 | Emergency (ER) | payer SELFPAY ==
[~2019-08-21] VITALS: Ht 165.1 cm; Wt 63.5 kg
[~2019-08-21 12:25] MED LIST changes: +CEPHALEXIN500 MG ORAL
--- NOTE | 2019-08-21 12:25 | NUR ---
ED Nurse Note: patient brought into ED from home by ambulance RA 67, s/p seizure around 1150, tonic clonic, witnessed by . patient is alert awake upon arrival, anxious and crying. patient placed on a injection molder.
[2019-08-21 12:34] VITALS: BP 158/95
--- NOTE | 2019-08-21 12:35 | Emergency Room Report ---
History of Present Illness General Chief Complaint: Seizure Source: Patient, EMS Present Illness HPI Patient is a 48-year-old female brought in by EMS after increased Sudden onset. Prior history of seizure disorder currently on Vimpat. Patient was noted to be postictal. She had prior brain surgery. Had a recent radiation due to increased size of her meningioma. She is followed at [facility]. Denies any current complaints. Denies any headache or extremity pain. COVID-19 risk:Travel to affect: No Has patient experienced farah: No Allergies: Coded Allergies: No Known Allergies (Unverified , 05/28/14) Patient History Past Medical History: see triage record Reviewed Nursing Documentation: PMH: Agreed; PSxH: Agreed Nursing Documentation-PMH Past Medical History: No History, Except For Hx Cardiac Problems: No Hx Hypertension: Yes Hx Cancer: No Hx Gastrointestinal Problems: No Hx Seizures: Yes Review of Systems All Other Systems: negative except mentioned in HPI Physical Exam Vital Signs Date Time Temp Pulse Resp B/P (MAP) Pulse Ox O2 Delivery O2 Flow Rate FiO2 08/21/19 12:17 98.4 108 22 146/72 (96) 100 Room Air Sp02 EP Interpretation: reviewed, normal General Appearance: normal inspection, well appearing, no apparent distress, alert, GCS 15, non-toxic Head: atraumatic ENT: normal ENT inspection, hearing grossly normal, normal voice Neck: normal inspection, full range of motion, supple, no bony tend Respiratory: normal inspection, lungs clear, normal breath sounds, no respiratory distress, no retraction, no wheezing Cardiovascular #1: regular rate, rhythm, no edema Gastrointestinal: normal inspection, normal bowel sounds, non tender, soft, no guarding, no hernia Genitourinary: no CVA tenderness Musculoskeletal: normal inspection, back normal, normal range of motion Neurologic: alert, motor strength/tone normal, surveyor helper rod III-XII nml as tested, oriented x3, responsive, speech normal, normal inspection Psychiatric: normal inspection, judgement/insight normal, mood/affect normal Medical Decision Making Diagnostic Impression: Primary Impression: Seizure Additional Impression: Hypertension ER Course Patient presented for seizure. Differential diagnosis included medication noncompliance, radiation induced tumor degeneration, electrolyte abnormality, mass lesion, or intacranial hemorrhage. Patient denies any headache or any other kinds of significant trauma. She appears to be stable for outpatient management.patient appears to have recent seizure likely related to radiation. the patient is advised to follow up with primary care doctor in 1-2 days. Patient is advised to return if any worsening condition or if any changes in status that are concerning. This report is dictated with [employer] svp group director software which may occasionally lead to discrepancies related to use of this software. Last Vital Signs Date Time Temp Pulse Resp B/P (MAP) Pulse Ox O2 Delivery O2 Flow Rate FiO2 08/21/19 12:17 98.4 108 22 146/72 (96) 100 Room Air Status: improved Disposition: HOME, SELF-CARE Condition: Stable Scripts Lorazepam* (ATIVAN*) 1 Mg Tablet 1 MG ORAL THREE TIMES A DAY, #5 TAB Prov: Neri Smart MD 08/21/19 Neri Smart MD Aug 21, 2019 12:35
--- NOTE | 2019-08-21 12:40 | NUR ---
ED Nurse Note: patient's at bedside. patient has hx of brain mass and brain surgery to remove the mass. per , patient received radiation from 08/15/19-08/19/19 and to get MRI done on 08/23/19. patient is more alert and awake now, alert and awake x3.
--- NOTE | 2019-08-21 12:58 | NUR ---
ED Nurse Note: patient unable to provide urine sample at this time.
[2019-08-21 13:00] LABS: BASOPHILS % (AUTO) 1.1 % (0.0-2.0); EOSINOPHILS % (AUTO) 0.6 % (0.0-3.0); HEMATOCRIT 41.5 % (37.0-47.0); HEMOGLOBIN 13.8 G/DL (12.0-16.0); LYMPHOCYTES % (AUTO) 38.5 % (20.0-45.0); MEAN CORPUSCULAR VOLUME 87 FL (80-99); MONOCYTES % (AUTO) 8.3 % (1.0-10.0); NEUTROPHILS % (AUTO) 51.6 % (45.0-75.0); PLATELET COUNT 313 K/UL (150-450); RED BLOOD COUNT 4.78 M/UL (4.20-5.40); RED CELL DISTRIBUTION WIDTH 13.4 % (11.6-14.8); WHITE BLOOD COUNT 7.8 K/UL (4.8-10.8)
[2019-08-21] MEDS ORDERED: LORazepam Inj 2mg/ml 1ml IV ONE (13:00)
[2019-08-21 13:02] LABS: ANION GAP 21 mmol/L (5-15); BLOOD UREA NITROGEN 9 mg/dL (7-18); CALCIUM 8.8 MG/DL (8.5-10.1); CARBON DIOXIDE 17 MMOL/L (21-32); CHLORIDE 101 MMOL/L (98-107); CREATININE 1.1 MG/DL (0.55-1.30); POTASSIUM 3.2 MMOL/L (3.5-5.1); SODIUM 139 MMOL/L (136-145)
[2019-08-21 13:06] LABS: ALANINE AMINOTRANSFERASE 17 U/L (12-78); ALBUMIN/GLOBULIN RATIO 1.1 (1.0-2.7); ALKALINE PHOSPHATASE 68 U/L (46-116); ASPARTATE AMINO TRANSFERASE 19 U/L (15-37); BILIRUBIN,TOTAL 0.4 MG/DL (0.2-1.0)
[2019-08-21] MEDS ORDERED: ATIVAN1 MG ORAL (13:48)
[2019-08-21 14:00] VITALS: BP 147/92
--- NOTE | 2019-08-21 14:00 | NUR ---
ED Nurse Note: Dr Smart is ok for the patient to be discharged without u/a
--- NOTE | 2019-08-21 14:14 | NUR ---
ER DISCHARGE NOTE: Patient is cleared to be discharged per ERMD DR KHANNA, pt is aox4, on room air, with stable vital signs. pt was given dc and prescription instructions, pt was able to verbalize understanding, pt id band and iv site removed without complications. pt is able to ambulate with steady gait. pt took all belongings. patient left with her
[2019-08-21 14:15] VITALS: BP 147/92
== END 2019-08-21 14:15 | disposition home or self-care (01) ==
LOC: EDBD 12:25 → EMR 13:26
DX: G40.909 Epilepsy, unspecified, not intractable, without status epilepticus (principal); I10 Essential (primary) hypertension
CPT/HCPCS: 36415; 80053; 80185; 84484; 85025; 96374; 99284; J8499

== ENCOUNTER 2019-11-21 11:47 | Emergency (ER) | payer SELFPAY ==
[~2019-11-21] VITALS: Ht 170.2 cm; Wt 74.8 kg
[~2019-11-21 11:47] MED LIST changes: +ATIVAN1 MG ORAL
[2019-11-21 12:05] VITALS: BP 138/99
--- NOTE | 2019-11-21 12:05 | NUR ---
ED Nurse Note: Patient was BIBA RA 67 from home due to seizure today, wwitnessed by family lasted for 5-6 minutes. 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 Pt is post ictal, lethargic, opens eyes. No SOB. Aefbrile. Pt has hx of seizure and had a craniotomy last August 2019. Pt placed on spring layer. Seizure precaution observed.
--- NOTE | 2019-11-21 12:10 | NUR ---
ED Nurse Note: IV line established. Blood specimen collected and sent to lab.
--- NOTE | 2019-11-21 12:20 | NUR ---
ED Nurse Note: Pt was taken to CT via scott.
--- NOTE | 2019-11-21 12:39 | Emergency Room Report ---
History of Present Illness General Chief Complaint: Seizure Source: Patient Present Illness HPI This patient is brought in by EMS. She is unable to give any type of history. Per EMS, the patient has a history of seizure disorder secondary to a brain tumor. She is on seizure medications but EMS does not know the names of them. They were called to her home after a family member called stating that she had a tonic-clonic seizure. EMS report that she was very combative after the seizure and the family reports that this is normal for her after she has a seizure. This is part of her post ictal state. Because of her combativeness, EMS did give her IM Valium. The patient herself is awake and alert but is unable to give any sensible history. Allergies: Coded Allergies: No Known Allergies (Unverified , 05/28/14) COVID-19 Screening Contact w/high risk pt: No Recent Travel to affected area: No Experienced COVID-19 symptoms?: No COVID-19 Testing performed BUSINESS OPERATIONS DIRECTOR: No Patient History Past Medical History: see triage record, HTN, seizures, other - Brain tumor Past Surgical History: other - crainiectomy with brain tumor resection Pertinent Family History: unable to obtain Social History: Denies: smoking, alcohol use, drug use Now: No Reviewed Nursing Documentation: PMH: Agreed; PSxH: Agreed Nursing Documentation-PMH Hx Cardiac Problems: No Hx Hypertension: Yes Hx Gastrointestinal Problems: No Hx Seizures: Yes Review of Systems All Other Systems: negative except mentioned in HPI Physical Exam Vital Signs Date Time Temp Pulse Resp B/P (MAP) Pulse Ox O2 Delivery O2 Flow Rate FiO2 11/21/19 11:40 98.2 106 16 138/99 (112) 98 Room Air Sp02 EP Interpretation: reviewed, normal General Appearance: no apparent distress, alert, GCS 15, non-toxic Head: normocephalic, atraumatic ENT: hearing grossly normal, normal pharynx, no angioedema, normal voice Neck: normal inspection, full range of motion, supple/symm/no masses Respiratory: chest non-tender, lungs clear, normal breath sounds, no respiratory distress, no retraction, no accessory muscle use, speaking full sentences Cardiovascular #1: regular rate, rhythm, no edema Gastrointestinal: normal bowel sounds, non tender, soft, non-distended, no guarding, no rebound Rectal: deferred Musculoskeletal: back normal, normal range of motion, gait/station normal, non- tender Neurologic: alert, motor strength/tone normal, oriented x3, sensory intact, responsive, speech normal Psychiatric: judgement/insight normal, memory normal, mood/affect normal, no suicidal/homicidal ideation Skin: no rash, normal color Medical Decision Making Diagnostic Impression: Primary Impression: Seizure ER Course I suspect the seizures that the patient is presenting with is non-emergent in etiology. The patient has a history of seizures in the past and has returned to baseline with normal neurologic status. The patient has a known history of brain tumor and recurrent and difficult to control seizures. I obtained a CT of the head as a precaution given the patient's known history of brain tumor. The CT did not show any acute findings. The patient does not have persistent altered mental status, fever or new focal neurologic deficit. Laboratory workup was noncontributory. I doubt meningitis so a lumbar puncture was not performed. The patient was counseled that, though unlikely, the possibility of an emergent cause of seizure may still be present and that the patient should return immediately if symptoms persist or worsen. I believe the patient is stable for discharge to followup with the primary care provider for further workup. Laboratory Tests Test 11/21/19 12:00 11/21/19 13:33 White Blood Count 6.7 K/UL (4.8-10.8) Red Blood Count 4.57 M/UL (4.20-5.40) Hemoglobin 13.3 G/DL (12.0-16.0) Hematocrit 43.5 % (37.0-47.0) Mean Corpuscular Volume 95 FL (80-99) Mean Corpuscular Hemoglobin 29.1 PG (27.0-31.0) Mean Corpuscular Hemoglobin Concent 30.6 G/DL (32.0-36.0) L Red Cell Distribution Width 14.6 % (11.6-14.8) Platelet Count 264 K/UL (150-450) Mean Platelet Volume 6.7 FL (6.5-10.1) Neutrophils (%) (Auto) 62.6 % (45.0-75.0) Lymphocytes (%) (Auto) 28.4 % (20.0-45.0) Monocytes (%) (Auto) 6.0 % (1.0-10.0) Eosinophils (%) (Auto) 1.9 % (0.0-3.0) Basophils (%) (Auto) 1.1 % (0.0-2.0) Sodium Level 140 MMOL/L (136-145) Potassium Level 3.3 MMOL/L (3.5-5.1) L Chloride Level 102 MMOL/L (98-107) Carbon Dioxide Level 20 MMOL/L (21-32) L Anion Gap 18 mmol/L (5-15) H Blood Urea Nitrogen 7 mg/dL (7-18) Creatinine 1.1 MG/DL (0.55-1.30) Estimated Glomerular Filtration Rate > 60 mL/min (>60) Glucose Level 142 MG/DL (74-106) H Calcium Level 8.7 MG/DL (8.5-10.1) Total Bilirubin 0.3 MG/DL (0.2-1.0) Aspartate Amino Transferase (AST) 34 U/L (15-37) Alanine Aminotransferase (ALT) 25 U/L (12-78) Alkaline Phosphatase 65 U/L (46-116) Total Creatine Kinase 159 U/L (26-308) Troponin I 0.000 ng/mL (0.000-0.056) Total Protein 7.5 G/DL (6.4-8.2) Albumin 3.8 G/DL (3.4-5.0) Globulin 3.7 g/dL Albumin/Globulin Ratio 1.0 (1.0-2.7) Salicylates Level 1.3 ug/mL (2.8-20) L Acetaminophen Level < 2 MCG/ML (10-30) L Serum Alcohol < 3 mg/dL Urine Color Pale yellow Urine Appearance Clear Urine pH 6 (4.5-8.0) Urine Specific [place] 1.010 (1.005-1.035) Urine Protein 2+ (NEGATIVE) H Urine Glucose (UA) Negative (NEGATIVE) Urine Ketones Negative (NEGATIVE) Urine Blood 2+ (NEGATIVE) H Urine Nitrite Negative (NEGATIVE) Urine Bilirubin Negative (NEGATIVE) Urine Urobilinogen Normal MG/DL (0.0-1.0) Urine Leukocyte Esterase 2+ (NEGATIVE) H Urine RBC 0-2 /HPF (0 - 2) Urine WBC 10-15 /HPF (0 - 2) H Urine Squamous Epithelial Cells Few /LPF (NONE/OCC) Urine Bacteria Few /HPF (NONE) Urine Opiates Screen Negative (NEGATIVE) Urine Barbiturates Screen Negative (NEGATIVE) Phencyclidine (PCP) Screen Negative (NEGATIVE) Urine Amphetamines Screen Negative (NEGATIVE) Urine Benzodiazepines Screen Positive (NEGATIVE) H Urine Cocaine Screen Negative (NEGATIVE) Urine Marijuana (THC) Screen Negative (NEGATIVE) EKG Diagnostic Results Rate: normal Rhythm: NSR ST Segments: no acute changes Rhythm Strip Diag. Results EP Interpretation: yes Rate: 90's Rhythm: NSR, no PVC's, no ectopy CT/MRI/US Diagnostic Results CT/MRI/US Diagnostic Results : Imaging Test Ordered: CT head Impression Postsurgical changes with left frontal temporal craniotomy and subjacent volume loss and is cephalization in the left temporal fossa. No acute intracranial abnormality. Last Vital Signs Date Time Temp Pulse Resp B/P (MAP) Pulse Ox O2 Delivery O2 Flow Rate FiO2 11/21/19 11:40 98.2 106 16 138/99 (112) 98 Room Air Status: improved Disposition: HOME, SELF-CARE Condition: Improved Patient Instructions: Seizure, Adult Brooke Shetty DO Nov 21, 2019 12:39
--- NOTE | 2019-11-21 12:44 | NUR ---
ED Nurse Note: Pt returned to CT.
[2019-11-21 12:52] LABS: ANION GAP 18 mmol/L (5-15); BLOOD UREA NITROGEN 7 mg/dL (7-18); CALCIUM 8.7 MG/DL (8.5-10.1); CARBON DIOXIDE 20 MMOL/L (21-32); CHLORIDE 102 MMOL/L (98-107); CREATININE 1.1 MG/DL (0.55-1.30); POTASSIUM 3.3 MMOL/L (3.5-5.1); SODIUM 140 MMOL/L (136-145)
--- NOTE | 2019-11-21 13:00 | NUR ---
ED Nurse Note: Pt is more awake, alert and oriented now. Able to answer questions.
[2019-11-21 13:02] LABS: ALANINE AMINOTRANSFERASE 25 U/L (12-78); ALBUMIN 3.8 G/DL (3.4-5.0); ALKALINE PHOSPHATASE 65 U/L (46-116); ASPARTATE AMINO TRANSFERASE 34 U/L (15-37); BILIRUBIN,TOTAL 0.3 MG/DL (0.2-1.0); CREATINE KINASE 159 U/L (26-308)
[2019-11-21 13:10] LABS: BASOPHILS % (AUTO) 1.1 % (0.0-2.0); EOSINOPHILS % (AUTO) 1.9 % (0.0-3.0); HEMATOCRIT 43.5 % (37.0-47.0); HEMOGLOBIN 13.3 G/DL (12.0-16.0); LYMPHOCYTES % (AUTO) 28.4 % (20.0-45.0); MEAN CORPUSCULAR VOLUME 95 FL (80-99); NEUTROPHILS % (AUTO) 62.6 % (45.0-75.0); PLATELET COUNT 264 K/UL (150-450); RED BLOOD COUNT 4.57 M/UL (4.20-5.40); RED CELL DISTRIBUTION WIDTH 14.6 % (11.6-14.8); WHITE BLOOD COUNT 6.7 K/UL (4.8-10.8)
--- NOTE | 2019-11-21 13:17 | Diagnostic Imaging Report ---
EXAM: CT CT Head no Contrast INDICATION: History of seizure. History of brain tumor. TECHNIQUE: Axial images of the brain were obtained with subsequent sagittal and coronal reformats. All CT scans at this facility are performed using dose modulation techniques as appropriate to a performed exam including the following: automated exposure control with adjustment of the mA and/or kV according to patient size. COMPARISON STUDY: None. RADIATION DOSE: CTDIvol: 53.4 mGy DLP: 1018.8 mGy-cm Dose information generated by the CT scanner is available in PACS. FINDINGS: There is a left frontal temporal craniotomy. Some volume loss and is cephalization noted in the left temporal fossa. There is no acute large territory cortical infarct, hemorrhage, mass effect or shift. Ventricles and cisterns as well as brainstem and posterior fossa appear unremarkable. The sellar region is normal. Sinuses and mastoid air cells appear unremarkable. IMPRESSION: Postsurgical changes with left frontal temporal craniotomy and subjacent volume loss and is cephalization in the left temporal fossa. No acute intracranial abnormality.
--- NOTE | 2019-11-21 13:33 | NUR ---
ED Nurse Note: Urine sample obtained and sent to lab.
[2019-11-21 13:49] LABS: APPEARANCE,URINE CLEAR; BILIRUBIN, URINE NEGATIVE (NEGATIVE); COLOR,URINE PALE YELLOW; GLUCOSE, URINE (UA) NEGATIVE (NEGATIVE); KETONES,URINE NEGATIVE (NEGATIVE); LEUKOCYTE ESTERASE ,URINE 2+ (NEGATIVE); NITRITE,URINE NEGATIVE (NEGATIVE); PH,URINE 6 (4.5-8.0); PROTEIN,URINE 2+ (NEGATIVE); UROBILINOGEN,URINE NORMAL MG/DL (0.0-1.0)
[2019-11-21] MEDS ORDERED: levETIRAcetam 1,000mg/NS100ml 100 ML IVPB ONE (14:15)
[2019-11-21 14:45] VITALS: BP 138/76
--- NOTE | 2019-11-21 14:45 | NUR ---
ED Nurse Note: Pt cleared by ERMD for discharge. DC instructions was given and explained to pt and verbalized understanding of teachings. All medical deviecs such as ID band and IV line removed. Pt is AAO x4, ambulatory and left with all personal belongings. P/u by
== END 2019-11-21 14:45 | disposition home or self-care (01) ==
LOC: EDBD 11:47 → EDSEX 11:47 → EMR 12:20
DX: G40.89 Other seizures (principal); I10 Essential (primary) hypertension
CPT/HCPCS: 36415; 70450; 80053; 80307; 81003; 82550; 84484; 85025; 87086; 93005; 96361; 96374; 99284; G0480; J1953; J7030; J8499